=== PATIENT | female | born 1975 | race Caucasian/White ===

== ENCOUNTER 2018-05-13 08:00 | Day surgery (SDC) | payer OTHER ==
[2018-05-13] MEDS ORDERED: SCOPOLAMINE HYDROBROMIDE PATCH TD ONE (08:34)
[2018-05-13] MEDS ORDERED: CEFAZOLIN 1GM (PREMIX IV) 1 GM/50 ML BAG ONE ×2 (08:34→08:38)
[2018-05-13] MEDS ORDERED: Ringers Lactate 1,000 ML IV ONE ×3 (08:34→12:49)
[2018-05-13] MEDS ORDERED: NS 0.9% VIAL 10 ML ONE (08:38)
[2018-05-13] MEDS ORDERED: BACITRACIN 50000 UNIT VIAL ONE (08:38)
[2018-05-13] MEDS ORDERED: GENTAMICIN 100 MG/100 ML BAG 100 ML IV ONE (08:38)
[2018-05-13] MEDS ORDERED: PROPOFOL 200 MG/20 ML VIAL IV ONE (08:54)
[2018-05-13] MEDS ORDERED: FENTANYL CITR 100 MCG/2 ML ONE ×2 (08:54→11:52)
[2018-05-13] MEDS ORDERED: ROCURONIUM 50 MG/5 ML VIAL IV ONE (08:55)
[2018-05-13] MEDS ORDERED: LIDOCAINE 2% MPF 5 ML VIAL ONE (08:58)
[2018-05-13] MEDS ORDERED: MIDAZOLAM HCL 2 MG/2 ML INJ ONE (09:00)
[2018-05-13] MEDS ORDERED: ONDANSETRON 4 MG/2 ML VIAL ONE (09:01)
[2018-05-13] MEDS ORDERED: DEXAMETHASONE 10 MG/ML VIAL ONE (09:52)
[2018-05-13] MEDS ORDERED: EPHEDRINE SULF 50 MG/ML VIAL ONE (12:46)
[2018-05-13] MEDS ORDERED: Mastisol Adhesive Liq ONE (13:17)
[2018-05-13] MEDS ORDERED: NEOSTIGMINE 1 MG/ML -5 ML SYRINGE ONE (13:25)
[2018-05-13] MEDS ORDERED: GLYCOPYRROLATE 0.2 MG/ML SYR ONE (13:25)
[2018-05-13] MEDS ORDERED: KETOROLAC 30 MG/ML INJ ONE (13:38)
[2018-05-13] MEDS: HYDROMORPHONE HCL 1 MG/ML INJ ONE ×2 (13:57→14:02)
--- NOTE | 2018-05-14 07:56 | OP ---
Surgeon: Sachin Holman MD Workforce Development Specialist: Juarez. Preoperative Diagnosis: Breast descent, status post breast augmentation x3. Postoperative Diagnosis: Breast descent, status post breast augmentation x3. Procedure Performed: Explant . Anesthesia: General. Procedure In Detail: After satisfactory induction of general anesthesia, the chest was prepped with DuraPrep, and dry sterile drapes were applied in the usual manner. A 42 template was used to outline the areolae. A transverse curvilinear incisions were made. The intervening skin was de-epitheliali zed with dermabrader and EpiCut. incision in skin, transverse incision and . F lap was thinned to approximately 0.5 cm cephalad and then more cephalad. Dissection proce eded towards the sternum, clavicle, and anterior axillary line. Both sides were done simultaneously. Then, the inferior incision was made of partial thickness, and then the de-epithelialized tissue wa s formed into a cone. Prior to conization, implants were removed by making incision at the 9 o'clock position on the right breast and 3 o'clock on the left. Implants were 400 cc silicone gel retropect oral place. The pectoralis major muscle origins of the inferior were cut and also had retracted from the so-called dual plane technique. The patient then had the de-epithelialized skin formed into a c one; and then straps were elevated at 12 o'clock, 1:30 o'clock, and 3 o'clock positions op posite side. The straps were woven in and out the pectoralis major, sewn back to the base, and then back to pectoral major, sewn to the base of themselves with 2-0 PDS. At 3 o'clock, strap was sewn ov er the sternum at the 3 o'clock position with 2-0 Ethibond. Left side was done in the [facility]. The wound was carefully stapled shut. The patient sat up. the wound inspected, a nd then the patient was returned to supine position. Wounds were irrigated with antibiotic solution. A #10 ANNETTE was brought out to axilla, sewn in place with 2-0 silk, and wounds were closed in layers w ith 3-0 Vicryl subcutaneous, 3-0 PDS running subcuticular tied in the vertical meridian of the breast s. The patient was then sat up. Site for new nipple-areolar complex was marked out. Tissue was cor ed out . Nipple was delivered, sewn with interrupted 4-0 PDS followed by 4-0 PDS running s ubcuticular. Dressings consisted of tincture of benzoin, Steri-Strips, 5x5s, fluffs, and Jason wrap. The patient tolerated the procedure well, returned to Recovery. CRISTAL Voice ID: [id number] Report ID: [id number]
== END 2018-05-13 16:13 | disposition home or self-care (01) ==
LOC: OR 08:00
PROVIDERS: ATTEND Specialist
PROC: 0HPT0JZ Removal of Synthetic Substitute from Right Breast, Open Approach (ICD-10-PCS; 2018-05-13)
PROC: 0H0V0ZZ Alteration of Bilateral Breast, Open Approach (ICD-10-PCS; 2018-05-13)
PROC: 0HPU0JZ Removal of Synthetic Substitute from Left Breast, Open Approach (ICD-10-PCS; principal; 2018-05-13 09:00)
DX: N64.81 Ptosis of breast (principal); Z45.812 Encounter for adjustment or removal of left breast implant; Z45.811 Encounter for adjustment or removal of right breast implant
CPT/HCPCS: 81025; 88305; J0690; J1100; J1170; J1580; J2250; J2405; J2704; J2710; J3010